=== PATIENT | female | born 1980 | race African-American/Black ===

== ENCOUNTER 2020-12-30 20:23 | Emergency (ER) | payer MEDICAID ==
[~2020-12-30] VITALS: Ht 157.5 cm; Wt 57.0 kg
[2020-12-30 20:24] VITALS: BP 120/75
[2020-12-30] MEDS ORDERED: LEVETIRACETAM 500MG PREMIX 100 ML IV ONE (21:15)
[2020-12-30] MEDS ORDERED: LORAZEPAM 2MG/ML CPJ IV ONE (21:15)
== END 2020-12-30 21:42 | disposition left against medical advice (07) ==
LOC: ER 20:23
DX: R56.9 Unspecified convulsions (principal); Z88.0 Allergy status to penicillin; Z88.1 Allergy status to other antibiotic agents; Z88.3 Allergy status to other anti-infective agents; Z91.14 Patient's other noncompliance with medication regimen
CPT/HCPCS: 99283